=== PATIENT | female | born 1970 | race Caucasian/White ===

== ENCOUNTER 2016-12-07 07:11 | Inpatient (IN) ==
--- NOTE | 2016-12-06 21:02 | Discharge Summary ---
<Kathrine Nance - Last Filed: 12/06/16 20:59> Date of Encounter: 12/06/16 - Discharge Diagnosis (1) Rotator cuff tear arthropathy of right shoulder Priority: Primary Status: Acute (2) Status post total replacement of right shoulder Priority: Primary Status: Acute (3) Asthma Priority: Secondary Status: Acute Qualifiers: Asthma severity: unspecified severity Asthma complication type: uncomplicated Qualified Code(s): J45.909 - Unspecified asthma, uncomplicated (4) Chronic pain Priority: Primary Status: Acute Comments: Chronic pain - takes Hydocodone 5/325mg BID, #60. Will hold chronic pain medication. Qualifiers: Chronic pain type: other chronic pain Qualified Code(s): G89.29 - Other chronic pain - Discharge Medications Home Medications: Lucina-D 24 Hour Tablet 12/07/16 [History] Cetirizine HCl [Zyrtec] 10 mg PO 12/07/16 [History] Desvenlafaxine Succinate [Pristiq ER] 100 mg PO 12/07/16 [History] Fluticasone/Salmeterol [Advair 250-50 Diskus] 12/07/16 [History] HYDROcodone/Acet 5/325 mg [Booker 5-325 mg] 12/07/16 [History] Proair Hfa 12/07/16 [History] Allergies/Adverse Reactions: Allergies aspirin Allergy (Unverified 11/25/16 08:07) Difficulty Breathing Primary care physician: Chiquita Mortensen MD - Patient Status Disposition: Home Health Service Condition: Good - Discharge Instructions Follow Up With: Chiquita Mortensen MD [Primary Care Provider] - - Hospital Course Hospital course: Ms. Orellana is a 46 year old female - Time Spent with Patient Total time spent providing and/or coordinating discharge services: <Malik Ortiz - Last Filed: 12/07/16 14:11> Date of Encounter: 12/07/16 Time of Encounter: 14:11 - Discharge Diagnosis (1) Rotator cuff tear arthropathy of right shoulder Priority: Primary Status: Acute (2) Asthma Priority: Secondary Status: Chronic Qualifiers: Asthma severity: unspecified severity Asthma complication type: uncomplicated Qualified Code(s): J45.909 - Unspecified asthma, uncomplicated (3) Status post total replacement of right shoulder Priority: Primary Status: Acute (4) Chronic pain Priority: Secondary Status: Chronic Qualifiers: Chronic pain type: other chronic pain Qualified Code(s): G89.29 - Other chronic pain Primary care physician: Chiquita Mortensen MD - Patient Status Functional capacity at discharge: independent ambulation Overall status at discharge: patient is progressing back to baseline - Hospital Course Hospital course: Ms. Orellana is a 46 year old female Status post right total shoulder replacement. Patient was discharged same day. - Time Spent with Patient Total time spent providing and/or coordinating discharge services:
--- NOTE | 2016-12-06 21:12 | Physician Discharge Referral ---
Home Health/Hosp Referral Info Transfer to: Home Health Provider in Charge Post Discharge: PCP - Diagnosis (1) Rotator cuff tear arthropathy of right shoulder Priority: Primary Status: Acute (2) Status post total replacement of right shoulder Priority: Primary Status: Acute (3) Asthma Priority: Secondary Status: Chronic (4) Chronic pain Priority: Secondary Status: Chronic - Respiratory Orders None Smoking Cessation: Smoking cessation has been advised. For more information, call the [employer] Tobacco Quit Line at 1-132-NRIN-NOW. - Dressing/Wound Care Type of Dressing/Treatments w/Frequency: Opsite dressing, leave intact until first post-operative visit. If dressing becomes >50% saturated, contact office, remove dressing and place appropriate dressing in its place. Do not allow for dressing to get wet. Shoulder Precautions x 6 weeks. Apply cold therapy wrap 3-6x/day for 20 minutes at a time. Encourage ambulation throughout the day. Use Incentive spirometer 10x/hour. Elevate affected extremity above heart as tolerated. NWB to affected upper extremity x 6 weeks. Will remove brace at first post-operative appointment. OK to remove during PT/ OT and Home exercises. - Diet/Nutrition Diet/Nutrition Orders: Regular - Activity Activity Orders: Ambulate - Services Needed Following services are medically necessary services: Nursing, Home Health Aide, Physical Therapy, Occupational Therapy - Transfer Medications Prescriptions: OxyCODONE Immed Rel [Roxicodone 5 MG] 5 - 10 mg PO Q6HR PRN #40 tablet PRN Reason: Pain Home Medications: OxyCODONE Immed Rel [Roxicodone 5 MG] 5 - 10 mg PO Q6HR PRN #40 tablet 12/06/16 [Rx] Allergies/Adverse Reactions: Allergies aspirin Allergy (Unverified 11/25/16 08:07) Difficulty Breathing Certification: Further, I certify that my clinical findings support that this patient is homebound (i.e. absences from home require considerable and taxing effort and are for medical reasons or adventist services or infrequently or short duration when for other reasons) because: Homebound Reason: Post-surgery restriction and or conditions limit ability to leave home Attestation: My signature below is to certify that this patient is under my care and that I, or nurse practitioner, or a physician's assistant professor of education working with me, has a face-to -face encounter with this patient.
[2016-12-07] MEDS ORDERED: Lidocaine -MPF 1% 2 ML VIAL ID ONE (07:44)
[2016-12-07] MEDS ORDERED: Albuterol 2.5 MG/3 ML NEBULIZER IH ONE (07:44)
[2016-12-07] MEDS ORDERED: CeFAZolin Pre 2,000 MG/100 ML 2,000 MG/100 ML BAG IVPB ONE (07:44)
[2016-12-07] MEDS ORDERED: Ringers Solution, Lactated 1,000 ML IVC SCH ×2 (07:45→11:11)
[2016-12-07] MEDS ORDERED: Albuterol 2.5 MG/3 ML NEBULIZER ONE (07:46)
[2016-12-07] MEDS ORDERED: Famotidine 20 MG/2 ML VIAL IVP ONE (07:50)
[2016-12-07] MEDS ORDERED: Gabapentin 300 MG CAPSULE PO ONE (07:50)
[2016-12-07] MEDS ORDERED: Ondansetron 4 MG/2 ML VIAL ONE (07:56)
[2016-12-07] MEDS ORDERED: *HR* Midazolam HCl 2 MG/2 ML VIAL ONE (07:56)
[2016-12-07] MEDS ORDERED: Lidocaine -MPF 2% 2 ML VIAL ONE (07:56)
[2016-12-07] MEDS ORDERED: *HR* FentaNYL (PF) 100 MCG/2 ML VIAL ONE (07:56)
[2016-12-07] MEDS ORDERED: *HR* Propofol 200 MG/20 ML VIAL IVP ONE (07:56)
--- NOTE | 2016-12-07 07:57 | Anesthesia Evaluation PreOp ---
Date of Encounter: 12/07/16 Time of Encounter: 07:50 - Past History Planned Operation: Right Total Shoulder Replacement Cardiac History: Denies any Significant Hx Pulmonary History: Asthma SHIPPING ASSOCIATE History: Denies Any Significant HX Other Medical History: Other (Osteoarthritis) Anesthesia History: No Prior Anesthetic Complications : No Test: Negative Alcohol Use: none Drug use: none Medications and Allergies OxyCODONE Immed Rel [Roxicodone 5 MG] 5 - 10 mg PO Q6HR PRN #40 tablet 12/06/16 [Rx] Allergies aspirin Allergy (Unverified 11/25/16 08:07) Difficulty Breathing - Meds/Allergy Pre-op Review Medications Reviewed: Yes Allergies Reviewed: Yes Beta Blockers on Current Med List: No Anesthesia Results - Labs Laboratory Tests 11/25/16 11/25/16 08:25 08:25 Hgb 13.4 Hct 41.0 Plt Count 313 Sodium 138 Potassium 4.3 BUN 16 Creatinine 0.82 Anesthesia Exam O2 Sat Height 1.57 m Height 1.57 m Weight 73.936 kg Weight 73.936 kg O2 Sat by Pulse Oximetry 95 Vital Signs Temp Pulse Resp BP Pulse Ox 98.2 F 69 18 126/83 95 12/07/16 07:37 12/07/16 07:37 12/07/16 07:37 12/07/16 07:37 12/07/16 07:37 Height: 5'2 Weight: 163 lbs NPO (# of Hours): MN Pain Scale: 0 - HEENT Pupil (Motor): Pupils equal, EOMI Mallampati: II Teeth: Normal Oral Opening: Greater than 3 - SHIPPING ASSOCIATE LOC: Oriented SHIPPING ASSOCIATE Motor: Normal RUE, Normal LUE, Normal RLE, Normal LLE, Normal Face SHIPPING ASSOCIATE Sensory: Normal: RUE, LUE, RLE, LLE, Face - Cardiac Rhythm: Regular Murmur: None JVD: No Carotid Bruit: No - Pulmonary Breath Sounds: bilateral Clear Respiratory Effort: Symmetrical Anesthesia Assess/Plan ASA Score: 2 Modified Bart Scale for Level of Consciousness: Cooperative, oriented, and tranquil Anesthetic Plan: General, Regional Monitoring Plan: Standard Monitors Recovery Plan: PACU (Discussed GA and RA, agrees to proceed)
[2016-12-07] MEDS ORDERED: ROPIVACAINE HCL/PF 0.5% 30 ML VIAL ONE (07:58)
[2016-12-07] MEDS ORDERED: Bupivacaine/Clonidine Syringe 1 EACH SYRINGE ONE (07:59)
--- NOTE | 2016-12-07 07:59 | History & Physical Report ---
Date of Encounter: 12/07/16 Time of Encounter: 07:59 24 Hour HP Update - Instructions Instructions: If the History and Physical is less than 30 days old and was completed prior to A.M. admission and or procedure and has NOT been updated on calendar day of procedure please complete this update prior to performing procedure. - Update Patient reports changes in Medical Condition: No Changes in examination, assessment, or condition: No Changes in Medication: No Preop tests/diagnostics Reviewed: Yes Surgery Remains Indicated: Yes Consent for Planned Operative Procedure(s) Verified: Yes - Pre-Operative Checklist Preoperative Checklist Indicated: No Prophylactic Antibiotic Ordered: Yes Is VTE Prophylaxis Indicated?: Yes
[2016-12-07] MEDS ORDERED: Ondansetron 4 MG/2 ML VIAL IVP ONE (08:10)
--- NOTE | 2016-12-07 08:34 | Anesthesia Procedures ---
Date of Encounter: 12/07/16 Time of Encounter: 08:15 Procedures: Anesthesia - Nerve Block Procedure Date: 12/07/16 Time: 08:15 Checklist: Correct Patient Identifier, Correct procedure, History checked Correct side: Right Blood Thinner: No Monitor Applied: EKG, BP, Pulse Oximetry Supplemental Oxygen via Nasal Cannula (L/min): 2 Sedation: Versed (mg): 2 Sedation: Fentanyl (mcg): 100 Indication: Post Op Analgesia Pre-op Neuro Deficits: No Block Type: Supraclavicular, Other (intermediate cervical plexus) Sterile Technique: Yes Ultrasound used: Yes Anatomy identified: Yes Visual spread of Local: Yes Neuro Stimulation: No Blood on Needle Aspiration: No Smooth Injection of Local: Yes Pain with Injection of Local: No Prep: Chlorhexadine Needle: 22 x 50 mm Stimuplex Local: 0.25% Bupivicaine w/Clonidine 20 mcg/cc (10 ml used I.C.P.), Ropivacaine (0.5% with 8 of decadron 30 ml) Volume (cc): 40 total Number of Attempts: 1 Complications: None/effective block Vitals: VSS
[2016-12-07] MEDS ORDERED: Dexamethasone 4 MG/ML VIAL ONE (09:17)
[2016-12-07] MEDS ORDERED: *HR* Phenylephrine 10 MG/ML VIAL ONE (09:35)
--- NOTE | 2016-12-07 09:44 | Orthopedic Operative Note ---
Date of procedure: 12/07/16 Pre-op diagnosis: Right cuff tear arthropathy Post-op diagnosis: same Procedure: Procedure: Right Total Shoulder Replacment Reverse Estimated blood loss: 100 cc Hardware: Metal and polyethylene replacement: Arthrex sMall glenoid baseplate, 2 4.5 screws. 1 6.5 screw, 36+4 glenosphere, 6 humeral stem, poly insert 3 and 6 metal Exam Under anesthesia: Full motion no instability Procedural Notes: Irreparable tear supra spinatus tendon Operative procedure: The patient was brought to the operating room and placed on the operating room table. After general anesthesia was administered the operative shoulder was examined. Findings were noted. The patient was placed in the modified beachchair position. All pressure points were padded appropriately. And the head was stabilized in the neutral position. The operative extremity was prepped and draped in the sterile surgical fashion. The patient received IV antibiotics prior to skin incision. A standard deltopectoral approach was made to the operative shoulder. Incision was made to the skin and subcutaneous tissue,hemo stasis was obtained with Bovie cautery. Using careful blunt dissection the cephalic vein was identified and mobilized medially. The deltopectoral interval was developed and the clavipectoral fascia was incised. The subscap was released off the lesser tuberosity and tagged with #2 FiberWire suture subscap was irreparable. The humerus was dislocated patient noted to have irreparable tear supraspinatus tendon, and the humeral cut was made along the anatomic neck. Anterior and posterior Bankart retractors were placed to expose the glenoid. The glenoid guide was seated and the centering hole was made. It was reamed with the appropriate reamer. The small baseplate was seated and secured with (2) 4.5 screws and one 6.5 screw. The baseplate was irrigated and dried and the 36+4 Glenosphere was seated and secured with the Rangel taper. The Rangel taper was tested and found to be secure the humerus was redislocated and prepared with the diaphyseal reamers, followed by a broaching process up to the appropriate size 6 in the patient's anatomic version. The metaphyseal reamer was then utilized. Trial reduction found the shoulder to be relocatable. Trial components were removed. The appropriate 6 stem was impacted in place in the patient's anatomic version. Trial reduction found the shoulder to be relocatable and stable with the appropriate 6 metal 3 Bertha Trial component was removed and the real implants was seated and secured the shoulder was reduced. The shoulder had excellent motion and excellent stability and no evidence of dislocation. The deep tissue was irrigated with pulse irrigation. The PA close the shoulder. The deltopectoral interval was closed with a running #1 PDS suture, subcutaneous tissue was irrigated and closed with 0 PDS suture, the skin was closed with Dermabond. The patient was placed in a sterile dressing, abduction brace and extubated. The patient was then transferred to the recovery room in stable condition. Anesthesia: DAVID Surgeon: Malik Ortiz Concrete Pourer: Kathrine Nance Condition: stable Disposition: PACU
[2016-12-07] MEDS: *HR* HYDROmorphone (PF) 1 MG/ML SYRINGE IVP PRN ×2 (10:12→10:17)
[2016-12-07 10:38] LABS: Hematocrit 40.9 % (35.3-44.9); Hemoglobin 13.4 g/dL (11.5-15.4)
[2016-12-07] MEDS ORDERED: *HR* Succinylcholine 200 MG/10 ML VIAL IVP ONE (10:59)
[2016-12-07] MEDS ORDERED: Lidocaine -MPF 4% 5 ML AMPUL ONE (10:59)
[2016-12-07] MEDS ORDERED: Naloxone 0.4 MG/ML INJ IVP PRN (11:11)
[2016-12-07] MEDS ORDERED: ceFAZolin 2,000 MG in D5% in Water 100 ML IVPB SCH ×2 (11:11→13:15)
[2016-12-07] MEDS ORDERED: *HR* HYDROmorphone (PF) 1 MG/ML SYRINGE IVP PRN (11:11)
[2016-12-07] MEDS ORDERED: Ondansetron 4 MG/2 ML VIAL IVP PRN (11:11)
[2016-12-07] MEDS ORDERED: Sennosides 8.6 MG TABLET PO PRN (11:11)
[2016-12-07] MEDS ORDERED: MOM Conc 10 ML UD.LIQ PO PRN (11:11)
[2016-12-07] MEDS ORDERED: *HR* OxyCODONE Immed Rel 5 MG TABLET PO PRN ×2 (11:11)
[2016-12-07 14:05] VITALS: BP 132/79
[2016-12-07] MEDS ORDERED: *HR* Enoxaparin 30 MG/0.3 ML SYRINGE SQ ONE (15:29)
[2016-12-07] MEDS ORDERED: *HR* Enoxaparin 30 MG/0.3 ML SYRINGE SQ SCH ×2 (18:00)
[2016-12-07] MEDS ORDERED: Temazepam 15 MG CAPSULE PO PRN (21:00)
== END 2016-12-07 16:01 | disposition home health service (06) | DRG 483 ==
LOC: SAMDAY 07:11 → 3NENU 11:12
PROVIDERS: ADMIT Orthopaedic Surgery; ATTEND Orthopaedic Surgery